=== PATIENT | male | born 1940 | race Caucasian/White ===

== ENCOUNTER → 2016-11-13 | Outpatient (CLI) | payer MEDICARE, OTHER ==
[~2016-11-13] MED LIST: ASPIR 8181 MG PO; CELEBREX 200MG200 MG PO; FLOMAX0.4 MG PO; LORTAB 7.5-3251 EACH PO; LOVENOX SY30 MG/0.3 SQ; PERCOCET 10-321 EACH PO; PROSCAR5 MG PO
[2016-11-13 13:49] LABS: BUN/CREATININE RATIO 17 (0-10)
== END ==
PROVIDERS: Internal Medicine
DX: E83.52 Hypercalcemia (principal)
CPT/HCPCS: 36415; 80053; 82397; 83970